=== PATIENT | female | born 1955 | race Caucasian/White ===

== ENCOUNTER → 2024-01-28 11:02 | Outpatient (REF) | payer OTHER, SELFPAY | LOC: WDC 11:02 | PROVIDERS: ATTENDING PHYSICIAN Nurse Practitioner Adult Health; FAMILY PHYSICIAN Family Medicine | DX: Z12.31 Encounter for screening mammogram for malignant neoplasm of breast (principal); C50.412 Malignant neoplasm of upper-outer quadrant of left female breast | CPT/HCPCS: 77063; 77067 ==

== ENCOUNTER → 2024-02-22 15:09 | Day surgery (SDC) | payer OTHER, SELFPAY ==
[2024-02-22] VITALS (9 sets, daily range): BP systolic 104–174; BP diastolic 60–93; BMI 30.7
--- NOTE | 2024-02-22 12:13 | ED.GENMED ---
History of Present Illness
General
Chief Complaint: Esophageal Problem
Source: patient
Exam Limitations: none
Time Seen by Provider: 02/22/24 11:38
Nursing documentation reviewed up to this point in time: agreed with
History of Present Illness
History of Present Illness:
68 y/o F
htn, hld
was eating steak last night and felt it get stuck
has since only tried sips of water with regurgitation
she is spitting her saliva to avoid swallowing
feels it is stuck in mid chest
no trouble breathign, fever, ches tpain
has never had this happen where she needed to come to ED
usually food does pass but has had meat get stuck for a efew hours before
Past History
Past History
ED Past Medical History: HTN and Hypercholesterolemia
Social History
Tobacco: Non-smoker
Alcohol: None
Review of Systems
Review of Systems
Allergies reviewed?: Yes
All Other Systems: Not applicable
Phy Exam
Physical Exam
Physical Exam:
GENERAL: Alert , in no apparent distress, patient is not in distress but she is spitting out her saliva rather than swallowing it
EYE: pupils equal and reactive
NECK: Supple
ENT: o/p clr, mmm.
CARDIAC: Regular rate and rhythm .
LUNGS: Clear breath sounds bilaterally, no acute respiratory distress, no wheezes/rales/rhonchi
ABDOMEN: Soft, without focal tenderness, no r/g, no cvat, normal bowel sounds
NEUROLOGICAL: Alert and oriented, no focal neuro deficits
PSYCH: Normal and appropriate interaction.
Course
Orders/Labs/Results
Orders:
Orders
02/22/24 12:16
Glucagon [GlucaGen] 1 mg IV NOW STA
02/22/24 14:00
Meperidine [Demerol] 12.5 mg IV [id number] PRN
Normosol (Mult Electrolytes) [Normosol-R] 1,000 ml IV PER PROTOCOL
Ondansetron Injectable [Zofran] 4 mg IV PACU-ONCEPRN PRN
Prochlorperazine [Compazine] 5 mg IV PACU-ONCEPRN PRN
Notify MD As Directed
Notify physician if: for SDS patients with known or suspected sleep obstructive sleep apnea, monitor in the
PACU.
Notify MD for any apneic/desaturation episodes
O2 Therapy [RESP] Urgent
Titrate/Wean O2 to maintain O2 sat greater than (%): 95
Special Instructions: -Provide supplemental oxygen to achieve O2 sat of 95% or greater.
-After 15 min, may wean O2 and discontinue if patient is able to maintain O2 sat of 95%
or greater during recovery period.
If patient is a discharge home, without oxygen therapy, notify anestheiologist if
unable to maintain O2 SAT of 95% or greater on room air for MD clearance.
02/22/24 14:58
Rocuronium [place] [Rocuronium] 50 mg .ROUTE .STK-MED ONE
Vital Signs
Initial and Last Documented VS:
Initial Vital Signs
Temp Pulse Resp BP Pulse Ox
99.1 F 100 16 166/91 99
02/22/24 11:06 02/22/24 11:06 02/22/24 11:06 02/22/24 11:06 02/22/24 11:06
Last Documented Vital Signs
Temp Pulse Resp BP Pulse Ox
99.1 F 95 14 174/93 94
02/22/24 11:06 02/22/24 12:54 02/22/24 12:54 02/22/24 12:54 02/22/24 12:54
MDM/Problems Addressed
Differential Diagnosis Includes:
Food bolus
MDM/Problems Addressed:
dain mcclelland 68 y/o F h/o htn, hld
has had episodes at home where meat gets temporarily stuck but never had to come in before; ate steak last night just 2 pieces, immediately felt 1 get stuck.; now spitting her saliva but she certainly seems comfortable;
Slightly hypertensive, well-appearing, no distress, spitting her saliva out by choice, heart lungs clear. Discussed with GI attending. She requested a dose of IV glucagon and will take patient to the GI suite for an endoscopy
*Critical Care Note
Total Time (30-74mins, 75-104mins- exclusive of procedures): Not Applicable
ED Attending Note
-
Portions of this chart may have been created with voice recognition software.� Occasional wrong word or��sound alike� substitutions may have occurred due to the inherent limitations of voice recognition software.
Discharge Plan
Departure
Patient Disposition: GI LAB
Date of Disposition: 02/22/24
Time of Disposition: 12:30
Admit to: GI lab
Admit to doctor: terrell
Presentation/result/management discussed w/ accepting MD/DO: terrell
Patient with high blood pressure during this ER visit?: Yes
Condition: Fair
Covid-19: Not Applicable
Discharge Problem:
Food impaction of esophagus
Interventions
Interventions:
*Risk Screen - Suicide Last Done: 02/22/24 11:32
*General Assessment Last Done: 02/22/24 11:32
*Neglect/Abuse Screening Last Done: 02/22/24 11:32
ED- Fall Risk Assessment Last Done: 02/22/24 11:32
*ED COVID-19 Vaccine History Last Done: 02/22/24 11:32
*Nursing Disposition Last Done: 02/22/24 14:11
DT-Baseft-Iejdmtjycc Assessment Last Done: 02/22/24 11:32
ED-EENT Assessment Last Done: 02/22/24 11:32
Discharge Date and Time
Discharge Date/Time: 02/22/24 14:11
--- NOTE | 2024-02-22 12:32 | CON.GI ---
Consultation
-
Date/Time Consultation Requested: 02/22/24
Date/Time Consultation Performed: 02/22/24
Requesting Provider: Dr. Dias
Performing Provider: Prisca Hargrove
Reason for Consultation: Food impaction
Medical History
Chief Complaint / HPI
Chief Complaint: dysphagia, unable to tolerate saliva
History of Present Illness:
Jessica Art is a 68-year-old female with past medical history of hypertension and hyperlipidemia who presents with difficulty swallowing after eating steak last night. Last night after eating steak for dinner she felt it got stuck, has had
difficulty swallowing anything since then. She tried to sip water and regurgitated it. She states she is unable to tolerate her saliva as she has been spitting that as well, feels it is stuck in her mid chest. She is not having any trouble
breathing, denies any fever chills chest pain, abdominal pain. She does admit to globus sensation in the past, specifically with meat however it typically has passed and has never required her to come to the ER for evaluation. This has happened
about 4 times in the last 1-2 years. Occasionally experiences heartburn with tomato sauce or spicy foods, which she will take OTC pepcid for, but this is infrequent. No recent labs. No blood thinners or NSAIDS. Former tobacco use, denies alcohol or
illcit drug use. No prior EGD or Colonoscopy. Reports sister had a surgery for 'swallowing issues.' Denies family history of esophageal Ca or Barretts esophagus.
Past Medical History
Past Medical History: HTN and Hypercholesterolemia
Social History
Tobacco: Smoker
Allergies / Home Medications
Allergy/AdvReac Type Severity Reaction Status Date / Time
No Known Allergies Allergy Unverified 02/22/24 11:05
Review of Systems
-
History Source: Patient
All other systems: A 12 pt ROS was Negative except as stated above in HPI
Vital Signs
Temp Pulse Resp BP Pulse Ox
99.1 F 100 16 166/91 99
02/22/24 11:06 02/22/24 11:06 02/22/24 11:06 02/22/24 11:06 02/22/24 11:06
Physical Exam
Exam
GENERAL: Appears mildly uncomfortable, spitting saliva, in no respiratory distress
ABDOMEN: +BS; soft, non-tender and non-distended; no rebound or guarding
Results
Diagnostic Image Results:
Prior GI Procedures:
EGD:
Colonoscopy:
Assessment / Plan
-
68 y.o. female w/ pmhx HTN and HLD presents with acute onset dysphagia following consumption of steak, concern for food impaction.
-Given glucagon now
-keep NPO
-Reports history of globus sensation, no prior food impactions
-EGD today for removal of food bolus as well as to assess for underlying esophageal pathology
-patient consented
-further recs pending EGD
-
-
Thank you for consultation and allowing me to participate in the patient's care. Please call the [facility] GI physician during the after hours with any questions or concerns.
[2024-02-22] MEDS: GlucaGen 1 MG IV (12:40)
[2024-02-22] MEDS: DUONEB 3 ML INH (17:05)
== END ==
LOC: EMR 10:52 → SDS 15:09
PROVIDERS: ATTENDING PHYSICIAN Physician Assistant; EMERGENCY PHYSICIAN Emergency Medicine; FAMILY PHYSICIAN Family Medicine
DX: T18.128A Food in esophagus causing other injury, initial encounter (principal); W44.F3XA Food entering into or through a natural orifice, initial encounter; K20.90 Esophagitis, unspecified without bleeding; K31.89 Other diseases of stomach and duodenum; K44.9 Diaphragmatic hernia without obstruction or gangrene
CPT/HCPCS: 43239; 88305; 94640; 96374; 99285; J1610

== ENCOUNTER → 2024-07-15 07:51 | Outpatient (REF) | payer OTHER, SELFPAY | LOC: RAD 07:51 | PROVIDERS: ATTENDING PHYSICIAN Internal Medicine Hematology & Oncology; FAMILY PHYSICIAN Family Medicine | DX: C50.412 Malignant neoplasm of upper-outer quadrant of left female breast (principal); D75.1 Secondary polycythemia; D75.838 Other thrombocytosis; D47.3 Essential (hemorrhagic) thrombocythemia | CPT/HCPCS: 77080 ==

== ENCOUNTER → 2025-02-03 08:47 | Outpatient (REF) | payer OTHER, SELFPAY | LOC: WDC 08:47 | PROVIDERS: ATTENDING PHYSICIAN Internal Medicine Hematology & Oncology; FAMILY PHYSICIAN Family Medicine | DX: Z12.31 Encounter for screening mammogram for malignant neoplasm of breast (principal); Z85.3 Personal history of malignant neoplasm of breast; C50.412 Malignant neoplasm of upper-outer quadrant of left female breast | CPT/HCPCS: 77063; 77067 ==

== ENCOUNTER 2025-07-27 06:24 | Day surgery (SDC) | payer OTHER, SELFPAY | END 2025-07-27 10:11 | disposition home or self-care (01) | LOC: GI 06:24 | PROVIDERS: ATTENDING PHYSICIAN Internal Medicine | DX: K22.2 Esophageal obstruction (principal); Q39.9 Congenital malformation of esophagus, unspecified; K44.9 Diaphragmatic hernia without obstruction or gangrene; R13.14 Dysphagia, pharyngoesophageal phase; K29.70 Gastritis, unspecified, without bleeding; K31.7 Polyp of stomach and duodenum; K29.50 Unspecified chronic gastritis without bleeding; K31.89 Other diseases of stomach and duodenum; K20.80 Other esophagitis without bleeding | CPT/HCPCS: 43249; 43239; 88305; 88342 ==